=== PATIENT | male | born 1950 | race Caucasian/White ===

== ENCOUNTER 2024-11-18 13:39 | Outpatient (CLI) | payer MEDICARE ==
--- NOTE | 2024-11-18 16:02 | RADIOLOGY REPORT ---
CLINICAL INFORMATION: 73 years old, Male; PAIN IN RIGHT SHOULDER. TECHNIQUE: Axial CT images of the right shoulder were obtained without IV contrast. Coronal and sagit shweta reformatted images were obtained, reviewed, and stored. Images were obtained per [employer] protocol. All CT scans at this medical facility are performed using dose modulation techniques as appropriate to a performed exam including the following: Automated exposure control was utilized; adjustment of t he MA and/or KV according to patient size; and use of iterative reconstruction technique. CTDIvol = 0 .07, 0.07, 36.22 0.07, 0.07, 36.92 mGy DLP = 1787.2 mGy-cm COMPARISON: None FINDINGS: No acute fracture. Severe osteoarthritic changes are seen the glenohumeral joint with sever e joint space narrowing, subchondral sclerosis, and prominent marginal osteophytes. There is up to 11 degrees glenoid retroversion oval of the caudal aspect of the coracoid process. There is mild to mod erate erosive change of the posterior glenoid. Moderate arthritic changes are seen of the acromioclav icular joint. No other significant osseous abnormality identified. No significant fatty atrophy in th e visualized musculature. Visualized portions of the right lung demonstrate mild dependent atelectasi s. Small calcified pleural plaque noted. Soft tissues are otherwise unremarkable. IMPRESSION: 1. Severe osteoarthritic changes of the right glenohumeral joint as detailed above. 2. Additional findings as described above.
== END 2024-11-18 23:59 | disposition home or self-care (01) ==
LOC: RAD 13:39
PROVIDERS: ATTEND Specialist
DX: M19.011 Primary osteoarthritis, right shoulder (principal); M25.511 Pain in right shoulder
CPT/HCPCS: 73200

== ENCOUNTER 2025-03-06 05:36 | Observation (INO) | payer MEDICARE ==
[2025-02-27 11:51] LABS: LEUKOCYTE ESTERASE ,URINE NEGATIVE (Neg); NITRITES, URINE NEGATIVE (Neg); OCCULT BLOOD,URINE NEGATIVE (Neg)
[2025-02-27 11:55] LABS: MEAN PLATELET VOLUME 7.5 FL (7.4-10.4); PRE OP HEMATOCRIT 44.7 % (42.0-52.0); PRE OP HEMOGLOBIN 15.4 g/dL (14.0-17.9); PRE OP PLATELET COUNT 205 X10'3 (140-440); PRE OP WHITE BLOOD COUNT 6.8 10'3 (4.8-10.8); RED CELL DISTRIBUTION WIDTH 12.7 % (11.5-14.5)
[2025-02-27 11:57] LABS: UA COLLECTION TYPE CLN CATCH MIDSTREAM
[2025-02-27 11:58] LABS: SQUAMOUS EPITHELIAL CELL,UR FEW /LPF (FEW)
[2025-02-27 12:07] LABS: CREATININE 0.91 MG/DL (0.60-1.10); PRE OP ALT 27 U/L (30-65); PRE OP ANION GAP 11 (8-16); PRE OP BILIRUB, TOTAL 0.6 MG/DL (0.0-1.0); PRE OP GLUCOSE 178 MG/DL (70-104); PRE OP INR 1.0 INR; PRE OP PARTIAL THROMB. TIME 22.0 SECONDS (22-32); PRE OP PROTIME 10.3 SECONDS (9.0-12.0); PRE OP SODIUM 138 MMOL/L (135-145); TOTAL CARBON DIOXIDE 22.4 MMOL/L (24-32); eGFR 82 ML/MIN
--- NOTE | 2025-02-27 12:10 | RADIOLOGY REPORT ---
EXAM: DI CHEST,TWO VIEWS CLINICAL HISTORY: pain COMPARISON: None TECHNIQUE: Frontal and lateral view of the chest was obtained FINDINGS: Lines and Tubes: None Lungs: No focal consolidation. Pleura: No effusion. No pneumothorax. Cardiomediastinal contours: Unremarkable Bones: No acute osseous abnormality. IMPRESSION: No acute cardiopulmonary disease.
[2025-02-27 12:11] LABS: PRE OP AST 29 U/L (10-37); PRE OP POTASSIUM 4.5 MMOL/L (3.4-5.1)
[~2025-03-06] VITALS: Ht 180.3 cm; Wt 105.6 kg
[2025-03-06] VITALS (18 sets, daily range): BP systolic 96–146; BP diastolic 55–86; PULSE 64–109; RESP 13–18; TEMP 97.4–98.6; O2SAT 95–99
[2025-03-06] MEDS: ringers solution, lacted 1,000 ML IV SCH ×2 (05:30→08:25)
[~2025-03-06 05:36] MED LIST: ASPI-1265 PO; CART1TAB5 PO; CHOL100025 PO; EMPA25TA PO; INSU3INS SQ; LISI10TA27 PO; METF-900 PO; METO-384 PO; MULT-1249 PO; NAPR-56 PO; OMEG-166 PO; ROSU5TAB51 PO; SEMA2PEN SQ; TAMS-55 PO
[2025-03-06] MEDS: tranexamic acid 1gm/0.7% sal. 100 ML IV ONE (06:23)
[2025-03-06] MEDS: DOCUMENT DATE & TIME OF BETA-BLOCKER PO ONE (06:23)
[2025-03-06] MEDS: ceFAZolin 2gm/dext,iso 50mL 50 ML IV ONE (06:23)
--- NOTE | 2025-03-06 06:43 | ELECTROCARDIOGRAPH REPORT ---
[facility] Test Date: 2025-03-06 Test Time: 06:42:10 Pat Name: BROCK MORENO Department: [facility] Patient ID: [facility]-[id number] Room: Gender: M Analysis Analyst: MOON : 1950 Requested By: SHERRELL SNOW Order Number: [id number] Reading MD: Dr. Dania Barry Measurements Intervals [place] Rate: 74 P: 40 MO: 213 QRS: 1 QRSD: 103 T: 33 QT: 362 QTc: 402 Interpretive Statements Sinus rhythm Ventricular premature complex Borderline prolonged MO interval Low voltage, precordial leads Electronically Signed On 03-06-2025 6:47:[address] Dania Barry Please click the below link to view image of tracing.
[2025-03-06] MEDS ORDERED: gelatin sponge, absorbable (Gelfoam 100) sponge TP ONE (06:55)
[2025-03-06] MEDS ORDERED: methylene blue (5mg/ml) 50mg/10ml ampul IV ONE (06:55)
[2025-03-06] MEDS ORDERED: vancomycin 1,000mg inj ONE (06:55)
[2025-03-06] MEDS ORDERED: cloNIDine hcl/PF 100mcg/ml inj ONE (07:10)
[2025-03-06] MEDS ORDERED: midazolam 1 mg/ML 2ml injection ONE (07:11)
[2025-03-06] MEDS ORDERED: fentaNYL/PF 50MCG/1 ML 2ML syringe ONE (07:11)
[2025-03-06] MEDS ORDERED: propofol inj 20 ML IV ONE (07:13)
[2025-03-06] MEDS ORDERED: bisacodyl 10mg suppository rectal RC PRN (07:20)
[2025-03-06] MEDS ORDERED: ondansetron/PF 4mg/2ml inj IV PRN ×2 (07:20→08:25)
[2025-03-06] MEDS ORDERED: magnesium hydroxide 30ml (MOM) UD suspension PO PRN (07:20)
[2025-03-06] MEDS ORDERED: HYDROcodone/acetaminophen 5mg/325mg tablet PO PRN (07:20)
[2025-03-06] MEDS ORDERED: morphine 4 MG/ML inj SYRINge IV PRN (08:25)
[2025-03-06] MEDS ORDERED: HYDROmorphone/PF 0.2 MG/ML SYRINGE IV PRN ×2 (08:25)
[2025-03-06] MEDS ORDERED: labetalol 20mg/4ml (5mg/ml) syringe IV PRN (08:25)
[2025-03-06] MEDS ORDERED: hydrALAZINE 20mg/ml inj. IV PRN (08:25)
[2025-03-06] MEDS: vancomycin 1,000mg inj IVT ONE (09:22)
[2025-03-06] MEDS ORDERED: ondansetron/PF 4mg/2ml inj ONE (09:24)
[2025-03-06] MEDS ORDERED: ROPIVAcaine 0.5% (5mg/ml) 30ml vial ONE (09:24)
--- NOTE | 2025-03-06 10:00 | OPERATIVE REPORT ---
Operative Report Providers to ~ Date of Procedure: Mar 06, 2025 Pre-Operative Diagnosis: R shoulder OA Post-Operative Diagnosis SAME as PRE-Op Procedure Performed Right reverse total shoulder arthroplasty and biceps tenodesis Surgeon: Solo Snow MD [employer] Counselor None Anesthesiologist: Guille Lopez Type of Anesthesia: General, Regional Findings: Severe right shoulder osteoarthritis. Intact subscapularis. Slightly thin supraspinatus. A stable Press-Fit reverse shoulder arthroplasty was placed. Complications None Prosthetics\Implants used: Shoulder innovations size eight humeral component, I 70 stem. +0 tray and +0 po lyethylene liner. On the glenoid side, a 15 degree augmented base plate with the maximum correction mostly posterior was placed along with a 36, plus six lateralized glenosphere Estimated Blood Loss: 150 cc Specimen Removed: Right humeral head Description of Procedure: Patient is brought to the operating. Placed in a supine position. Preoperative antibiotics of 2 g of Ancef were given. 1 g of TXA was given as well. General plus regional anesthesia was performed. Patient was then positioned in a modified beach chair position. Bony prominences were well padded. Bilateral lower extremity SCDs were placed. The right upper extremity was prepped and draped in the usual sterile fashion. A time-out procedure was performed as per routine identifying the patient, site to be operated on, procedure to be performed, confirmed right shoulder interscalene block. I began with the right shoulder deltopectoral incision. Cephalic vein was identified and taken laterally with the deltoid. I developed the deltopectoral interval and subdeltoid space. Retractor was placed under the deltoid for good visualization. I identified the pectoralis major insertion and dissected the long head of the biceps proximal to this all the way up to the rotator interval. I then did a soft tissue tenodesis with two locking 2. FiberWire sutures at the pectoralis major insertion to tenodesed the long head of the biceps. I then resected the proximal portion of the biceps all the way up to the rotator interval. Careful dissection was performed around the calcar. Retractor was carefully placed under the conjoined tendon after blunt dissection. I could clearly see the subscapularis. A tag suture was placed in the subscapularis and a subscapularis peel was performed. Along with having a subperiosteal dissection along the calcar, I was slowly able to released the osteophytes inferiorly from the capsule and eventually dislocate the shoulder into the deltopectoral interval. I released about 1 cm of the anterior portion of the supraspinatus. This allowed better visualization. I released the CA ligament. I protected the conjoined tendon. I then was able to dislocate the shoulder into the deltopectoral interval. Marginal osteophytes were removed with a rongeur. Capsular reflexion was identified. I then referenced a cut guide. I then used a high-speed oscillating saw to make my neck cut at approximately 132.5 of inclination and 20 of retroversion. Once I did this, posterior osteophytes were removed. I then sounded the canal. I then broached from a size six which was somewhat loose. I went up to a size eight which had a much better fit. I then used a dish Reamer for the humeral tray. I then placed a cut protector. I moved onto the glenoid. Careful dissection was performed around the glenoid and retractors were placed directly on bone superiorly, posteriorly, inferiorly, and anteriorly. Once I did this, I resected residual labrum and biceps anchor. Patient had very hard eburnated bone of the glenoid. Once I had good visualization, I placed my guide pin according to my 3D preoperative plan using a 15 degree augmented guide with the maximum correction posteriorly. Fluoroscopy was used to check the position of the guide pin and then again I referenced my 3D preoperative plan. I was happy with its position. Then utilizing a 15 degree augmented Reamer, I reamed the glenoid with the maximum correction essentially straight posterior. I then used a center post drill. I then irrigated the shoulder with IrriSept. A 15 degree augmented base plate was then placed with the maximum correction posteriorly. It had excellent Press-Fit. I then placed a center compression screw with excellent purchase. I then placed three peripheral locking screws. The base plate was very stable. According to my 3D preoperative plan, a 36 diameter plus six glenosphere would work well. So I used a 36 diameter peripheral Reamer around the base plate to clear up for the glenosphere. I then irrigated and then dried the taper with IrriSept. I then placed a 36, plus six lateralized glenosphere by impacting the taper, testing the taper, and then re impacting the taper. I then moved back to the humerus. A trial +0 tray and +0 liner was placed as a patient shoulder was somewhat tight. This had a very good positive reduction feel. No dislocation with a lateral Shuck. Stable range of motion was internal rotation to the belly, external rotation to about 70, easy overhead motion. Abduction external rotation to 90 and abduction internal rotation to 30. I felt no impingement. I felt this construct was stable and good. I dislocated the shoulder. I then removed the trial components. They had reasonable Press-Fit. The shoulder was irrigated. I drilled four drill holes adjacent to the lesser tuberosity and placed 1.3 mm SutureTape x4 through those holes for my later subscapularis repair. Definitive implant was opened which was a size eight inset 70 humeral component with a +0 tray and +0 liner. It was assembled in standard fashion. I then impacted the stem. As it was going down, it looks slightly loose so I decided to take some bone for compaction grafting. Bone from the humeral head was then packed especially around the medial side of the implant. I put a small amount superiorly. I then impacted it. It had excellent Press-Fit. Both axially stable and rotationally stable. With stressing the implant, I could not see any motion. The implant tray looked like it was firmly and evenly seated. I then reduced the shoulder with the same reduction feel and stability. Final fluoroscopy images were taken. I was happy with the overall construct. The stem was in a slight amount of varus however I felt that it was firmly seated on bone visually. Those final fluoroscopy images were saved. I then irrigated the shoulder with IrriSept and then 3 L of pulse lavage irrigation. I reduced the subscapularis and a double row subscapularis repair was performed. It was very stable. I put one stitch in the rotator interval. An axillary nerve tug test was performed and it was intact. I then placed 1 g of vancomycin powder adjacent to the implant. The deltopectoral interval was closed with 2. FiberWire suture. Deep layers were closed with 0 Vicryl suture, subcutaneous layers were closed with 2-0 Vicryl suture and skin was closed with 3-0 Stratafix suture. Final sponge and needle counts were correct. Sterile dressings were applied after sealing the wound with Dermabond. Patient was fitted with a shoulder abduction orthosis. This was necessary to keep the patient safe and prevent complications in the early postoperative period. Patient was thereafter recovered without complications and sent to recovery in good condition. Counts repoted as correct: Yes X-Ray findings: Per PAT Cond no x-ray SOLO SNOW MD Mar 06, 2025 10:00
--- NOTE | 2025-03-06 10:50 | RADIOLOGY REPORT ---
EXAM: DI SHOULDER, COMPLETE (MIN 2 VWS) CLINICAL INDICATION: post op RT. SHOULDER TECHNIQUE: DI SHOULDER, COMPLETE (MIN 2 VWS) Comparison: None FINDINGS/IMPRESSION: There is no evidence of acute fracture or dislocation. Right total shoulder arthroplasties
[2025-03-06] MEDS ORDERED: glucagon, human recombinant 1mg kit SUBCUT PRN (15:00)
[2025-03-06] MEDS ORDERED: dextrose 50%-water 50ml dispensing syringe IV PRN ×2 (15:00)
[2025-03-06] MEDS ORDERED: DEXTROSE 15 GM of carb/4 tabs (each vial/BOTTLE has 4 tablets) PO PRN ×2 (15:00)
[2025-03-06] MEDS: ceFAZolin 2gm/dext,iso 50mL 50 ML IV SCH (17:18)
[2025-03-06] MEDS: INSULIN LISPRO 100 UNIT/ML INSULN.PEN MULTI-DOSE SQ SCH (17:40)
[2025-03-06] MEDS: potassium cl 20mEq in 1/2 NS 1,000 ML IV SCH (19:42)
--- NOTE | 2025-03-06 19:43 | HISTORY AND PHYSICAL ---
History & Physical Providers to CC ~ History of Present Illness Reason for Admit\Complaint: Postop management History of Present Illness Patient had Right reverse total shoulder arthroplasty and biceps tenodesis done by Dr. SHERRELL SNOW today. Hospitalist services contacted for further postop management. Patient has type 2 diabetes and has who has Parkinson's. Patient denies any chest pain shortness of breaths or any other cardiovascular symptoms. He denies any nausea vomiting or abdominal pain. Allergies: Coded Allergies: No Known Allergies (Unverified , 03/03/25) Home Medications Home Medications Active Reported Xultophy 100 Unit-3.6 mg/ml (Insulin Degludec/Liraglutide) 100 Unit-3.6 Mg/Ml (3 Ml) Insuln.pen 32 Units SQ HS Lisinopril 10 Mg Tablet 1 Tab PO HS 30 Days Flomax* (Tamsulosin HCl) 0.4 Mg Cap.sr.24h 2 Cap PO HS 30 Days Jardiance (Empagliflozin) 25 Mg Tablet 1 Tab PO DAILY 30 Days Rosuvastatin Calcium 5 Mg Tablet 1 Tab PO HS 30 Days Multivitamin 1 Each Tablet 1 Tab PO DAILY 30 Days Fish Oil 1,000 Mg Ec Softgel ([place]-3/Dha/Epa/Fish Oil) 300 Mg-1,000 Mg Capsule.dr 1 Cap PO DAILY 30 Days Metformin ER* (Metformin HCl) 500 Mg Tab.sr.24h 2 Tab PO DAILY 30 Days Ozempic (Semaglutide) 2 Mg/0.75 Ml (8 Mg/3 Ml) Pen.injctr 2.5 Mg SQ Q7D Vitamin D (Cholecalciferol) 1,000 Unit Tablet 1 Tab PO DAILY 30 Days Aspirin 81 Mg Tab.chew 1 Tab PO DAILY 30 Days Metoprolol Succinate 50 Mg Tab.sr.24h 1 Tab PO DAILY 30 Days Naproxen 500 Mg Tablet 1 Tab PO BID Past Medical History Past Medical History Type 2 diabetes, Severe right shoulder osteoarthritis Past Surgical History Surgical History Comment Patient is status post left shoulder surgery, right knee surgery in past Past Social History Social History Comment Lives with his who has parkinsonism ROS ROS Review of system as mentioned above in HPI rest of the review of system unrema rkable Exam Vitals: Vital Signs Date Time Temp Pulse Resp B/P (MAP) Pulse Ox O2 Delivery O2 Flow Rate FiO2 03/06/25 18:00 97.4 91 13 109/60 (76) 99 Room Air 03/06/25 10:30 0.0 General: General-patient not in any acute distress, alert awake oriented, chronically ill-appearing, Obese. HEENT-atraumatic normocephalic, neck supple without elevated JVD, no thyromegaly or carotid bruit. No lymphadenopathy bilaterally. Eyes-no icterus or pallor seen in eyes Chest-clear to auscultation bilaterally, breathing nonlabored no tachypnea, no wheezing, no crepitation, no crackles. Heart-S1-S2 normal, regular heart rate no murmur Abdomen bowel sounds positive on auscultation, soft nondistended nontender no guarding, no rigidity Skin no active skin rash/signs of chronic hyperpigmentation present over lower extremity Neurology-grossly intact, nonfocal alert awake oriented Extremity- no pedal edema able to move all 3 extremities, sling present over right upper extremity/ shoulder Psychiatry - patient is not confused or agitated cooperated during physical examination Diagnostic Data Diagnostic Data: Laboratory Tests Test 02/27/25 11:36 Prothrombin Time 10.3 SECONDS (9.0-12.0) INR International Normalized Ratio 1.0 INR Activated Partial Thromboplast Time 22 SECONDS (22-32) Advance Care Planning Advanced Care plannin - 30 Minutes Additional Plan Patient was seen on ortho floor in his room. Patient had Right reverse total shoulder arthroplasty and biceps tenodesis done by Dr. SHERRELL SNOW today. Code status discussed with the patient patient wishes to stay full code. We will do home medication reconciliation for patient's home medication once updated in electronic medical record system. Hypo and hyperglycemic protocol ordered. Patient is currently on pain medication for pain control. Dr. Snow place further rest of the orders. orders. We will follow the patient in AM Date of Service: Mar 06, 2025 Billing Provider: NYDIA BRAND MD Common Visit Codes: 18592-EYTAKQO INP/OBS CARE (HIGH) Secondary Visit Codes: 49006-[id number] CARE PLAN 30 MINUTES NYDIA BRAND MD Mar 06, 2025 19:43
[2025-03-07] MEDS: ceFAZolin 2gm/dext,iso 50mL 50 ML IV SCH (01:30)
[2025-03-07 02:00] VITALS: BP 105/66; PULSE 104; RESP 16; TEMP 97.1; O2SAT 95
[2025-03-07] MEDS: HYDROcodone/acetaminophen 5mg/325mg tablet PO PRN (05:07)
[2025-03-07 06:00] VITALS: BP 130/81; PULSE 83; RESP 18; TEMP 97.4; O2SAT 96
[2025-03-07 06:16] LABS: MEAN PLATELET VOLUME 7.7 FL (7.4-10.4); RED CELL DISTRIBUTION WIDTH 12.8 % (11.5-14.5)
[2025-03-07 06:40] LABS: CREATININE 1.05 MG/DL (0.60-1.10); TOTAL CARBON DIOXIDE 23.3 MMOL/L (24-32); eCRCL 67 ML/MIN; eGFR 69 ML/MIN
--- NOTE | 2025-03-07 07:37 | PROGRESS NOTE ---
Progress Note Orthopedic Ortho Post Op Day #: 1 Follow Up Progress Note Postoperative day 1. Status post right reverse total shoulder arthroplasty Central Line/PICC still needed: N\A Crowell Catheter still needed?: N\A Subjective Patient has no complaints. Pain is reasonably controlled. His block started wearing off at 4:30 a.m. Objective Vital Signs Date Time Temp Pulse Resp B/P (MAP) Pulse Ox O2 Delivery O2 Flow Rate FiO2 03/07/25 06:00 97.4 83 18 130/81 (97) 96 Room Air 03/06/25 23:54 0 21 Result Diagram: 03/07/25 0521 03/07/25 0521 Alert and Oreinted x4, Appropriate, Vital signs are stable, In no acute distress, Dressing clean and dry Objective Examination of the right shoulder shows dressing intact. No strike through. Axillary nerve is intact to light touch. 2+ radial pulse. His median, and ulnar nerve motor and sensory functions are intact although he does have decreased sensation subjectively throughout. While he does have the beginning of radial nerve motor function, it is not full. He also has decreased sensation of the radial nerve distribution as well but he can sense light touch throughout it is just not normal. Postoperative sling is in place. Lab Results comments Postoperative labs are reviewed. They are appropriate for postoperative day 1. Other Results Postoperative x-rays were reviewed. No visible signs of complications. Joint alignment looks reasonable. Implant alignment and positions look fine Problem/Assessment/Plan Assessment\Plan: Doing Well, Anticipate disch to home Patient is doing well. Recovering as expected. He still has some minor residual effect of the block but this should wear off by the end of the day. He has been advised. Patient will be seen and cleared by therapy for safe discharge. He will be taught pendulums and passive range of motion. He has finished his postoperative antibiotics. Postoperative labs look reasonable. His vital signs were stable. He should be discharged home later today with the following instructions: 1. No active right shoulder range of motion 2. Pendulums and passive range of motion only with no shoulder external rotation past neutral 3. Strict nonweightbearing right upper extremity 4. Tomorrow, patient may remove the postoperative dressings. If there is no drainage and the wound is clean and dry, he may shower. 5. Patient should resume normal medications 6. Patient should start aspirin 325 mg one tablet p.o. daily x4 weeks as DVT prophylaxis. Patient has no trouble with aspirin and no history of stomach ulcers. 7. Patient is supposed to have outpatient therapy set up. He states he has not answered the phone when called as he requested home health therapy. I told him he needs to reach out to the home health therapy accompanied to set up his 1st visit 8. Patient should follow up with me in two weeks All of the above was reviewed with the patient. Patient has my cell phone number should there be any questions or emergencies. SHERRELL SNOW MD Mar 07, 2025 07:37
--- NOTE | 2025-03-07 07:42 | DISCHARGE SUMMARY ---
Discharge Summary Providers to ~ Discharge Summary Admission Diagnosis: R shoulder OA Hospital Course DATE OF ADMISSION: 03/06/2025 DATE OF DISCHARGE: 03/07/2025 Discharge Diagnosis\Comment: Right shoulder osteoarthritis Operations\Procedures: On 03/06/2025, patient underwent a right reverse total shoulder arthroplasty without complications Consultants: Hospitalist service for diabetic management Complications: None Condition on DC: Stable Discharge Summary: Patient underwent surgery on 03/06/2025 for a right reverse total shoulder arthroplasty. Surgery proceeded without complications. Patient was admitted for routine postoperative care. He received IV antibiotics. Pain was reasonably controlled with oral pain medications on an interscalene block. Patient was seen and cleared by Physical therapy postoperatively. Postoperative labs and vitals all look fine. Postoperative x-rays looked reasonable. Patient was deemed stable for discharge on postoperative day 1. With the following instructions: 1. No active right shoulder range of motion 2. Pendulums and passive range of motion only with no shoulder external rotation past neutral 3. Strict nonweightbearing right upper extremity 4. Tomorrow, patient may remove the postoperative dressings. If there is no drainage and the wound is clean and dry, he may shower. 5. Patient should resume normal medications 6. Patient should start aspirin 325 mg one tablet p.o. daily x4 weeks as DVT prophylaxis. Patient has no trouble with aspirin and no history of stomach ulcers. 7. Patient is supposed to have outpatient therapy set up. He states he has not answered the phone when called as he requested home health therapy. I told him he needs to reach out to the home health therapy accompanied to set up his 1st visit 8. Patient should follow up with me in two weeks All of the above was reviewed with the patient. Patient has my cell phone number should there be any questions or emergencies. *Problems/Diagnosis: (1) Primary osteoarthritis, right shoulder Status: Resolved Total Time Spent on D/C: Up to 30 Minutes SHERRELL SNOW MD Mar 07, 2025 07:42
[2025-03-07] MEDS: metoprolol succinate 25mg (24-HOUR) SR. Tablet PO SCH (08:00)
[2025-03-07] MEDS ORDERED: METFORMIN HCL PO SCH (08:00)
[2025-03-07] MEDS: cholecalciferol (vitamin D3) 1,000 unit (25mcg) tablet PO SCH (08:34)
[2025-03-07] MEDS: EMPAGLIFLOZIN 25 MG TABLET PO SCH (08:34)
[2025-03-07] MEDS: OMEGA-3/DHA/EPA/FISH OIL 1 EACH CAPSULE.DR PO SCH (08:35)
[2025-03-07] MEDS: multivitamins, therapeutics tablet PO SCH (08:36)
[2025-03-07] MEDS ORDERED: METO-384 PO (11:59)
[2025-03-07] MEDS ORDERED: TAMS-55 PO (11:59)
[2025-03-07] MEDS ORDERED: LISI10TA27 PO (11:59)
[2025-03-07] MEDS ORDERED: MIDO5TAB4 PO (11:59)
--- NOTE | 2025-03-07 20:57 | DISCHARGE SUMMARY ---
Discharge Summary Providers to CC ~ Discharge Summary Admission Diagnosis: R shoulder OA Hospital Course DATE OF ADMISSION: March 06, 2025 DATE OF DISCHARGE: March 07, 2025 CBC testing done on March 07, 2025 WBC 9.9 hemoglobin 15.1 hematocrit 44.4 platelet count 199. Serum chemistry done on March 07, 2025 sodium 137 potassium 4.2 creatinine 1.05 GFR 69, hemoglobin A1c 6.4 Patient had x-ray chest No acute cardiopulmonary disease. shoulder x-ray done during hospitalization FINDINGS/IMPRESSION: There is no evidence of acute fracture or dislocation. Right total shoulder arthroplasties Discharge Diagnosis\Comment: Right reverse total shoulder arthroplasty and biceps tenodesis Operations\Procedures: Right reverse total shoulder arthroplasty and biceps tenodesis Consultants: Dr. SHERRELL SNOW Complications: NONE Condition on DC: Stable New Medications: Midodrine HCl (Midodrine HCl) 5 Mg Tablet 1 TAB PO Q12H for 30 Days, #60 TAB 0 Refills Changed Medications: Lisinopril (Lisinopril) 10 Mg Tablet 0.5 TAB PO HS for 30 Days, #15 TAB 0 Refills (Changed from: 1 TAB; 30) Metoprolol Succinate (Metoprolol Succinate) 50 Mg Tab.sr.24h 0.5 TAB PO DAILY for 30 Days, #30 TAB 0 Refills (Changed from: 1 TAB) Tamsulosin Hcl* (Flomax*) 0.4 Mg Cap.sr.24h 1 CAP PO HS for 30 Days, #30 CAP (Changed from: 2 CAP) Continued Medications: Aspirin (Aspirin) 81 Mg Tab.chew 1 TAB PO DAILY for 30 Days, #30 TAB Cholecalciferol (Vitamin D) 1,000 Unit Tablet 1 TAB PO DAILY for 30 Days, #30 TAB 0 Refills Empagliflozin (Jardiance) 25 Mg Tablet 1 TAB PO DAILY for 30 Days, #30 TAB 0 Refills Metformin Hcl* (Metformin ER*) 500 Mg Tab.sr.24h 2 TAB PO DAILY for 30 Days, #60 TAB Multivitamin (Multivitamin) 1 Each Tablet 1 TAB PO DAILY for 30 Days, #30 TAB 0 Refills [place]-3/Dha/Epa/Fish Oil (Fish Oil 1,000 Mg Ec Softgel) 300 Mg-1,000 Mg Capsule.dr 1 CAP PO DAILY for 30 Days, #30 CAP 0 Refills Rosuvastatin Calcium (Rosuvastatin Calcium) 5 Mg Tablet 1 TAB PO HS for high cholesterol for 30 Days, #30 TAB 0 Refills Discontinued Medications: Insulin Degludec/Liraglutide (Xultophy 100 Unit-3.6 mg/ml) 100 Unit-3.6 Mg/Ml (3 Ml) Insuln.pen 32 UNITS SQ HS Naproxen (Naproxen) 500 Mg Tablet 1 TAB PO BID, TAB Semaglutide (Ozempic) 2 Mg/0.75 Ml (8 Mg/3 Ml) Pen.injctr 2.5 MG SQ Q7D Discharge Summary: Patient had Right reverse total shoulder arthroplasty and biceps tenodesis done by Dr. SHERRELL villalobos. Hospitalist services contacted for further postop management. Patient has type 2 diabetes and has who has Parkinson's. Patient denies any chest pain shortness of breaths or any other cardiovascular symptoms. He denies any nausea vomiting or abdominal pain. PLEASE SEE FURTHER DETAILS IN DR. ETIENNE DISCHARGE SUMMARY NOTES General-patient not in any acute distress, alert awake oriented, chronically ill-appearing, Obese. HEENT-atraumatic normocephalic, neck supple without elevated JVD, no thyromegaly or carotid bruit. No lymphadenopathy bilaterally. Eyes-no icterus or pallor seen in eyes Chest-clear to auscultation bilaterally, breathing nonlabored no tachypnea, no wheezing, no crepitation, no crackles. Heart-S1-S2 normal, regular heart rate no murmur Abdomen bowel sounds positive on auscultation, soft nondistended nontender no guarding, no rigidity Skin no active skin rash/signs of chronic hyperpigmentation present over lower extremity Neurology-grossly intact, nonfocal alert awake oriented Extremity- no pedal edema able to move all 3 extremities, sling present over right upper extremity/ shoulder Psychiatry - patient is not confused or agitated cooperated during physical examination Patient is feeling better he has been afebrile and getting discharged home in stable condition. Patient is seen and examined on the day of discharge. All labs, diagnostic workup and discharge plan discussed with patient before her discharge. Counseling done regarding orthostatic hypotension and risks explained. All questions and queries answered to the best of my professional medical knowledge. I heard patient's concerns and address appropriately. Dis charge instructions provided to the patientFollow-up with primary care physician for further management of orthostatic hypotension and type 2 diabetes. Hemoglobin A1c 6.4 continue metformin and diabetic diet. Please provide fall precautions documents. Activity as tolerated. Pain medication prescription as per Dr. Snow. *Problems/Diagnosis: (1) Primary osteoarthritis, right shoulder Status: Resolved Total Time Spent on D/C: > 30 Minutes Date of Service: Mar 07, 2025 Billing Provider: NYDIA BRAND MD Common Visit Codes: 54975-JJG/OBS DISCH DAY >30min NYDIA BRAND MD Mar 07, 2025 20:51
[2025-03-07] MEDS ORDERED: LIRAGLUTIDE SQ SCH (21:00)
[2025-03-07] MEDS ORDERED: INSULIN DEGLUDEC SQ SCH (21:00)
== END 2025-03-07 13:54 | disposition home or self-care (01) ==
LOC: PAS 05:36 → PAS IN 07:26 → ORTHO 4S 10:40
PROVIDERS: ADMIT Specialist; ATTEND Specialist
DX: M19.011 Primary osteoarthritis, right shoulder (principal); M25.511 Pain in right shoulder; E11.9 Type 2 diabetes mellitus without complications; E78.00 Pure hypercholesterolemia, unspecified; I95.1 Orthostatic hypotension; R79.1 Abnormal coagulation profile; Z79.4 Long term (current) use of insulin; Z79.84 Long term (current) use of oral hypoglycemic drugs; Z79.899 Other long term (current) drug therapy; Z98.890 Other specified postprocedural states
CPT/HCPCS: 23472; 29828; 36415; 71046; 73030; 76000; 80053; 81001; 82948; 83036; 85025; 85610; 85730; 87081; 93005; 96365; 96366; 97110; 97161; 97530; 97535; C1713; C1776; G0378; J0690; J0735; J2250; J2405; J2704; J2795; J3010; J3373; J3480; J7040; J7120; A4618; A6449; A6455; A7000; J1815; Q9968